=== PATIENT | male | born 1945 | race Caucasian/White ===

== ENCOUNTER 2016-08-12 19:56 | Inpatient (IN) | payer MEDICARE ==
[~2016-08-12] VITALS: Ht 170.2 cm; Wt 71.5 kg
[2016-08-12] MEDS ORDERED: ALBU8.5H IH (20:09)
[2016-08-12] MEDS ORDERED: PANT40TA25 PO (20:09)
[2016-08-12] MEDS ORDERED: GABA-531 PO (20:09)
[2016-08-12] MEDS ORDERED: TERB250 PO (20:09)
[2016-08-12] MEDS ORDERED: BUDE10.2 IH (20:09)
[2016-08-12] MEDS ORDERED: METO-323 PO (20:09)
[2016-08-12] MEDS ORDERED: ALEN70TA48 PO (20:09)
[2016-08-12] MEDS ORDERED: SIMV-260 PO (20:09)
[2016-08-12] MEDS ORDERED: FAMO20 PO (20:09)
[2016-08-12] MEDS ORDERED: ADV250 IH (20:09)
[2016-08-12 20:45] LABS: ANION GAP 9 mmol/L (8-16); BASOPHILS % (AUTO) 1.3 % (0.0-2.0); CALCIUM, TOTAL 9.1 mg/dL (8.8-10.5); CARBON DIOXIDE 29 mmol/L (22-29); CHLORIDE 101 mmol/L (98-107); CREATININE 0.98 mg/dL (0.60-1.30); EOSINOPHILS % (AUTO) 1.5 % (1.0-6.0); GLOMERULAR FILTR. RATE CALC > 60 mL/min (>60); HEMATOCRIT 47.1 % (41-53); HEMOGLOBIN 15.4 g/dL (13.5-17.5); LYMPHOCYTES # (AUTO) 1.9 K/uL (1.0-4.8); LYMPHOCYTES % (AUTO) 15.6 % (22.0-44.0); MEAN CORPUSCULAR HGB CONC 32.6 G/dL (31.0-37.0); MEAN CORPUSCULAR VOLUME 95 fL (80-100); MONOCYTES # (AUTO) 1.3 K/uL (0.1-1.0); MONOCYTES % (AUTO) 10.1 % (2.0-9.0); NEUTROPHILS # (AUTO) 8.9 K/uL (1.8-7.7); NEUTROPHILS % (AUTO) 71.5 % (40.0-70.0); PLATELET COUNT (AUTO) 199 K/uL (150-450); POTASSIUM 3.8 mmol/L (3.5-5.1); RED BLOOD CELL COUNT(AUTO) 4.95 MIL/uL (4.50-5.90); RED CELL DISTRIBUTION WIDTH 13.9 % (11.5-14.5); SODIUM SERUM 139 mmol/L (136-145); UREA NITROGEN, BLOOD 7 mg/dL (7-18); WHITE BLOOD COUNT (AUTO) 12.5 K/uL (4.5-11.0)
[2016-08-12 20:51] LABS: ALANINE AMINOTRANSFERASE 19 U/L (12-78); ALBUMIN 3.3 g/dL (3.4-5.0); ASPARTATE AMINOTRANSFERASE 17 U/L (15-37); BILIRUBIN,TOTAL 0.3 mg/dL (0.1-1.0); CREATINE KINASE, TOTAL 40 U/L (39-308); TOTAL PROTEIN, SERUM 6.8 g/dL (6.4-8.2)
[2016-08-12] MEDS ORDERED: PredniSONE 20 MG TABLET PO ONE (21:00)
[2016-08-12 21:06] LABS: B-TYPE NATRIURETIC PEPTIDE 22 pg/mL (0-100)
[2016-08-12 22:44] LABS: ADD UA MICROSCOPIC NO; APPEARANCE,URINE CLEAR (CLEAR); GLUCOSE, URINE (UA) NEGATIVE (NEGATIVE); KETONES,URINE NEGATIVE (NEGATIVE); LEUKOCYTE ESTERASE ,URINE NEGATIVE (NEGATIVE); OCCULT BLOOD,URINE NEGATIVE (NEGATIVE); PH,URINE 7.5 (5.0-8.0); PROTEIN,URINE NEGATIVE (NEGATIVE)
[2016-08-12] MEDS ORDERED: AZITHROMYCIN 500 MG/NS 250 ML IV ONE (22:45)
[2016-08-12] MEDS ORDERED: AZITHROMYCIN 250 MG TABLET PO ONE (22:45)
[2016-08-12] MEDS ORDERED: ACETAMINOPHEN 325 MG TABLET PO PRN (23:00)
[2016-08-12] MEDS ORDERED: 0.9% SODIUM CHLORIDE 10 ML SYRINGE IVP PRN (23:00)
[2016-08-12 23:20] VITALS: BP 147/78
[2016-08-13] MEDS ORDERED: ACETAMINOPHEN 325 MG TABLET PO PRN (01:30)
[2016-08-13] MEDS ORDERED: ONDANSETRON HCL 4 MG/2 ML VIAL IVP PRN (01:30)
[2016-08-13] MEDS ORDERED: ALBUTEROL SULFATE 2.5 MG/0.5 ML NEB SOLUTION NEB PRN (01:30)
[2016-08-13] MEDS ORDERED: GuaiFENesin/D-METHORPHAN/PHENYLEPH 5 ML LIQUID ORAL.SYG PO PRN (01:30)
[2016-08-13] MEDS ORDERED: OxyCODONE HCL/ACETAMINOPHEN 5-325 MG TABLET PO PRN (01:30)
[2016-08-13] MEDS ORDERED: BISACODYL 10 MG RECTAL RECTAL SUPPOSITORY PR PRN (01:30)
[2016-08-13] MEDS ORDERED: IPRATROPIUM BROMIDE 0.5 MG/2.5 ML NEB SOLUTION NEB PRN (01:30)
[2016-08-13] MEDS ORDERED: ZOLPIDEM TARTRATE 5 MG TABLET PO PRN (01:30)
[2016-08-13] MEDS ORDERED: MAGNESIUM HYDROXIDE SUSPENSION 30 ML UDCUP PO PRN (01:30)
[2016-08-13 04:50] VITALS: BP 101/73
[2016-08-13 07:06] VITALS: BP 106/74
[2016-08-13] MEDS: MethylPREDNISolone SOD SUCC 125 MG/2 ML VIAL IVP SCH ×4 (08:18→20:16)
[2016-08-13] MEDS: METOPROLOL SUCCINATE 25 MG ER TABLET PO SCH (08:19)
[2016-08-13] MEDS: GABAPENTIN 300 MG CAPSULE PO SCH ×3 (08:19→20:17)
[2016-08-13] MEDS: HEPARIN SODIUM,PORCINE 5,000 UNITS/ML VIAL SQ SCH ×2 (08:19→20:16)
[2016-08-13] MEDS: SIMVASTATIN 20 MG TABLET PO SCH (08:19)
[2016-08-13] MEDS: PANTOPRAZOLE SODIUM 40 MG DR TABLET PO SCH (08:19)
[2016-08-13] MEDS: BUDESONIDE/FORMOTEROL FUMARATE 160-4.5 MCG/PUFF 6.9 GM INHALER IH SCH ×2 (08:21→20:16)
[2016-08-13 11:31] VITALS: BP 115/60
[2016-08-13 16:21] VITALS: BP 124/77
[2016-08-13 19:23] VITALS: BP 128/69
[2016-08-13 23:57] VITALS: BP 129/72
[2016-08-14] MEDS: AZITHROMYCIN 500 MG/NS 250 ML IV SCH ×2 (00:23→23:09)
[2016-08-14 04:45] VITALS: BP 123/66
[2016-08-14 06:10] LABS: BASOPHILS # (AUTO) 0.05 K/uL (0.00-0.20); BASOPHILS % (AUTO) 0.4 % (0.0-2.0); EOSINOPHILS # (AUTO) 0.01 K/uL (0.00-0.70); EOSINOPHILS % (AUTO) 0.06 % (1.0-6.0); HEMATOCRIT 39.3 % (41-53); HEMOGLOBIN 13.1 g/dL (13.5-17.5); LYMPHOCYTES # (AUTO) 0.5 K/uL (1.0-4.8); LYMPHOCYTES % (AUTO) 4.1 % (22.0-44.0); MEAN CORPUSCULAR HEMOGLOBIN 31.7 pg (26.0-34.0); MEAN CORPUSCULAR HGB CONC 33.4 G/dL (31.0-37.0); MEAN CORPUSCULAR VOLUME 95 fL (80-100); MONOCYTES # (AUTO) 0.2 K/uL (0.1-1.0); MONOCYTES % (AUTO) 1.8 % (2.0-9.0); NEUTROPHILS # (AUTO) 12.3 K/uL (1.8-7.7); PLATELET COUNT (AUTO) 175 K/uL (150-450); RED BLOOD CELL COUNT(AUTO) 4.14 MIL/uL (4.50-5.90); WHITE BLOOD COUNT (AUTO) 13.2 K/uL (4.5-11.0)
[2016-08-14 06:49] LABS: ALANINE AMINOTRANSFERASE 17 U/L (12-78); ALBUMIN 2.6 g/dL (3.4-5.0); ANION GAP 9 mmol/L (8-16); ASPARTATE AMINOTRANSFERASE 11 U/L (15-37); BILIRUBIN,TOTAL 0.3 mg/dL (0.1-1.0); CALCIUM, TOTAL 8.7 mg/dL (8.8-10.5); CARBON DIOXIDE 27 mmol/L (22-29); CHLORIDE 106 mmol/L (98-107); CHOL/HDL RATIO 2.3 (4.2-7.3); CREATININE 0.82 mg/dL (0.60-1.30); GLOMERULAR FILTR. RATE CALC > 60 mL/min (>60); PHOSPHORUS 3.1 mg/dL (2.5-4.9); POTASSIUM 3.9 mmol/L (3.5-5.1); SODIUM SERUM 142 mmol/L (136-145); TOTAL PROTEIN, SERUM 5.8 g/dL (6.4-8.2); UREA NITROGEN, BLOOD 11 mg/dL (7-18)
[2016-08-14 07:05] LABS: NEUTROPHILS % (AUTO) 93.7 % (40.0-70.0); RBC MORPHOLOGY COMMENT NORMAL RBC MORPH
[2016-08-14 07:58] VITALS: BP 120/70
[2016-08-14] MEDS: BUDESONIDE/FORMOTEROL FUMARATE 160-4.5 MCG/PUFF 6.9 GM INHALER IH SCH ×2 (09:05→20:24)
[2016-08-14] MEDS: MethylPREDNISolone SOD SUCC 125 MG/2 ML VIAL IVP SCH ×4 (09:05→20:23)
[2016-08-14] MEDS: METOPROLOL SUCCINATE 25 MG ER TABLET PO SCH (09:05)
[2016-08-14] MEDS: PANTOPRAZOLE SODIUM 40 MG DR TABLET PO SCH (09:05)
[2016-08-14] MEDS: HEPARIN SODIUM,PORCINE 5,000 UNITS/ML VIAL SQ SCH ×2 (09:06→20:24)
[2016-08-14] MEDS: GABAPENTIN 300 MG CAPSULE PO SCH ×3 (09:06→20:23)
[2016-08-14] MEDS: SIMVASTATIN 20 MG TABLET PO SCH (09:06)
[2016-08-14 15:46] VITALS: BP 115/65
[2016-08-14 20:12] VITALS: BP 125/75
[2016-08-14] MEDS ORDERED: SODIUM CHLORIDE 0.9% 250 ML IV ONE (23:11)
[2016-08-15 00:28] VITALS: BP 123/70
[2016-08-15 05:00] VITALS: BP 122/57
[2016-08-15 07:55] VITALS: BP 122/69
[2016-08-15] MEDS ORDERED: PredniSONE 20 MG TABLET PO ONE (08:00)
[2016-08-15] MEDS: SIMVASTATIN 20 MG TABLET PO SCH (08:12)
[2016-08-15] MEDS: HEPARIN SODIUM,PORCINE 5,000 UNITS/ML VIAL SQ SCH (08:12)
[2016-08-15] MEDS: PANTOPRAZOLE SODIUM 40 MG DR TABLET PO SCH (08:12)
[2016-08-15] MEDS: GABAPENTIN 300 MG CAPSULE PO SCH (08:12)
[2016-08-15] MEDS: METOPROLOL SUCCINATE 25 MG ER TABLET PO SCH (08:13)
[2016-08-15] MEDS: MethylPREDNISolone SOD SUCC 125 MG/2 ML VIAL IVP SCH (08:13)
[2016-08-15] MEDS: BUDESONIDE/FORMOTEROL FUMARATE 160-4.5 MCG/PUFF 6.9 GM INHALER IH SCH (08:14)
[2016-08-15] MEDS ORDERED: AZIT250T6 PO (09:12)
[2016-08-15] MEDS ORDERED: METO-323 PO (09:13)
[2016-08-15] MEDS ORDERED: PRED5 PO ×2 (09:18→09:20)
== END 2016-08-15 09:41 | disposition home or self-care (01) | DRG 872 ==
LOC: EMS 19:59 → 6N 22:27
PROVIDERS: ADMIT Internal Medicine; ATTEND Internal Medicine
DX: A41.9 Sepsis, unspecified organism (principal); J44.1 Chronic obstructive pulmonary disease with (acute) exacerbation; E44.0 Moderate protein-calorie malnutrition; K21.9 Gastro-esophageal reflux disease without esophagitis; M13.0 Polyarthritis, unspecified; E78.5 Hyperlipidemia, unspecified; M81.0 Age-related osteoporosis without current pathological fracture; F17.210 Nicotine dependence, cigarettes, uncomplicated; I10 Essential (primary) hypertension; E83.42 Hypomagnesemia; D72.829 Elevated white blood cell count, unspecified; R07.89 Other chest pain; Z71.6 Tobacco abuse counseling; Z82.49 Family history of ischemic heart disease and other diseases of the circulatory system; Z90.89 Acquired absence of other organs; Z68.24 Body mass index [BMI] 24.0-24.9, adult
CPT/HCPCS: 82306; 83735; 84100; 84439; 84443; 85379; 87040; 93005; 99285; J0456; J1644; J2930; J7050